=== PATIENT | female | born 1990 | race Caucasian/White ===

== ENCOUNTER 2023-09-27 19:32 | Emergency (ER) | payer BC, OTHER ==
[2023-09-27 21:34] LABS: BILIRUBIN,URINE NEGATIVE (NEGATIVE); GLUCOSE, URINE (UA) NEGATIVE (NEGATIVE); KETONES,URINE (UA) NEGATIVE (NEGATIVE); LEUKOCYTE ESTERASE, URINE NEGATIVE (NEGATIVE); NITRITE,URINE NEGATIVE (NEGATIVE); OCCULT BLOOD,URINE MODERATE (NEGATIVE); PROTEIN,URINE TRACE mg/dL (NEGATIVE); UROBILINOGEN,URINE 0.2 (NORMAL) E.U./dL (NORMAL)
[2023-09-27 21:38] LABS: CLARITY,URINE HAZY (CLEAR); HCG UR QUAL NEGATIVE
[2023-09-27 21:45] LABS: BASOPHILS # (AUTO) 0.1 10^3/uL (0.0-0.1); BASOPHILS % (AUTO) 0.5 %; EOSINOPHILS # (AUTO) 0.2 10^3/uL (0.0-0.7); EOSINOPHILS % (AUTO) 1.6 %; HCT - HEMATOCRIT 39.4 % (37.0-47.0); HGB - HEMOGLOBIN 12.5 g/dL (12.0-16.0); LYMPHOCYTES # (AUTO) 4.1 10^3/uL (1.5-3.5); LYMPHOCYTES % (AUTO) 34.7 %; MEAN CORPUSCULAR HEMOGLOBIN 27.6 pg (27.0-31.0); MEAN CORPUSCULAR HGB CONC 31.7 g/dL (32.0-36.0); MEAN PLATELET VOLUME 10.8 fL (7.9-10.8); MONOCYTES # (AUTO) 0.9 10^3/uL (0.0-1.0); MONOCYTES % (AUTO) 7.5 %; NEUTROPHILS # (AUTO) 6.5 10^3/uL (1.5-6.6); NEUTROPHILS % (AUTO) 55.4 %; PLT - PLATELET COUNT 264 10^3/uL (130-450); RED BLOOD COUNT 4.53 10^6/uL (4.20-5.40); WHITE BLOOD COUNT 11.7 x10^3/uL (4.8-10.8)
[2023-09-27 21:45] LABS: BACTERIA,URINE Moderate /HPF (None Seen); MUCUS,URINE Few Strands; SQUAMOUS EPITHELIAL CELL,UR MANY Squamous (<= Few); WBC,URINE 0-3 /HPF (0-5)
--- NOTE | 2023-09-27 21:47 | Ultrasound Report ---
PROCEDURE: Pelvic w/Transvag+Doppler Comp INDICATIONS: pelvic pain, R TECHNIQUE: Real-time scanning was performed of the pelvic organs, with image documentation. Additional endovagi nal scanning was necessary due to incomplete visualization of the adnexal and endometrial structures by transabdominal scanning. Doppler interrogation was performed of the ovaries bilaterally. COMPARISON: None. FINDINGS: Uterus: Uterus is anteverted and normal in size at 9.1 x 4.1 x 4.9 cm. The myometrium is homogeneou s. The endometrium measures 12.1 mm in combined thickness. Intrauterine device is seen within endom etrium. No gross endometrial mass or fluid is seen. Ovaries: The right ovary measures 4.1 x 3 x 3.5 cm, with a calculated ovarian volume of 22.2 cc. Th e left ovary measures 3 x 2 x 2.4 cm, with a calculated ovarian volume of 7.5 cc. Appropriate blood flow to the ovaries with Doppler interrogation. Less than 12 follicles can be seen in each ovary. C omplex cyst is seen in right ovary measures 3 x 2.1 x 2.5 cm in size.. There is also a 1.4 x 1.3 cm h ypoechoic area within right adnexa adjacent to the right ovary with suggestion of internal vascularit y. Other: Small amount of free fluid is seen in right adnexa. IMPRESSION: 1. Enlarged uterus. No intrauterine gestational sac or gross endometrial mass or fluid. No uterine fi broids. Intrauterine device is seen in its central endometrial location. 2. Enlarged right ovary with a complex right ovarian cyst measures 3 x 2 x 2.4 cm in size. Additional masslike hypoechoic area in right adnexa adjacent to right ovary is also seen and is of indeterminat e etiology. Follow-up ultrasound is recommended in 4-6 weeks for further evaluation. Clinical correla tion for patient's beta-hCG level is also recommended. 3. Small amount of free fluid in right adnexa. Normal-appearing left ovary. No evidence of ovarian to rsion. Reviewed by: Farhan Santos MD on 09/27/2023 9:46 PM PDT Approved by: Farhan Santos MD on 09/27/2023 9:46 PM PDT Station ID: [id number]
[2023-09-27 21:59] LABS: ALBUMIN 4.3 g/dL (3.2-5.5); ALBUMIN/GLOBULIN RATIO 1.3 (1.0-2.2); ALKALINE PHOSPHATASE 71 IU/L (42-121); ALT ALANINE AMINOTRANSFERASE 18 IU/L (10-60); AST ASPARTATE AMINOTRANSFERASE 15 IU/L (10-42); BILIRUBIN,TOTAL 0.3 mg/dL (0.2-1.0); BUN - BLOOD UREA NITROGEN 23 mg/dL (6-20); CALCIUM 9.3 mg/dL (8.5-10.3); CARBON DIOXIDE - CO2 24 mmol/L (21-32); CHLORIDE 104 mmol/L (101-111); CREATININE 0.6 mg/dL (0.6-1.3); GFR - MDRD 115 (>89); GLUCOSE 97 mg/dL (74-104); LIPASE 16 U/L (11-82); POTASSIUM 3.6 mmol/L (3.5-4.5); SODIUM 135 mmol/L (135-145); TOTAL PROTEIN 7.6 g/dL (6.4-8.9)
--- NOTE | 2023-09-27 22:14 | ED Physician Documentation ---
PD HPI FEMALE - Stated complaint Stated Complaint: - Chief complaint Chief Complaint: Abd Pain - Additional information Additional information: 32-year-old female presents emergency department for right-sided pelvic pain and intermittent vaginal bleeding after intercourse that she had with her on Tuesday. Patient has an IUD and she is worried that its possibly displaced she did a self vaginal exam and said that it felt abnormal and there which is what brings her into the emergency department today. She has not taken any Tylenol ibuprofen for the pain today she has not had any vaginal bleeding today either. PD PAST MEDICAL HISTORY - Allergies Allergies/Adverse Reactions: Allergies Allergy/AdvReac Type Severity Reaction Status Date / Time No Known Drug Allergies Allergy Verified 09/27/23 20:09 PD ED PE NORMAL - Vitals Vital signs reviewed: Yes - General General: Alert and oriented X 3, No acute distress, Well developed/nourished - Abdomen Abdomen: Normal bowel sounds, Soft, Non distended, No organomegaly, Other (Right pelvic tenderness and suprapubic pelvic tenderness) - Back Back: No CVA TTP - Derm Derm: Normal color, Warm and dry, No rash PD ED PE EXPANDED - Female Female : Normal external, Vaginal Discharge (Normal light yellow/white vaginal discharge, no odor), Adnexal Tenderness (Right adnexal tenderness), Product Promoter Sales Person present (APRIL Montiel present). No: Skin lesions, Vaginal Bleeding, CMT, Dilated cervix Results - Vitals Vitals: Vital Signs - 24 hr 09/27/23 09/27/23 09/27/23 20:02 22:09 22:24 Temperature 36.9 C 36.9 C Heart Rate 80 79 79 Respiratory 16 16 16 Rate Blood Pressure 150/105 H 141/85 H 141/85 H O2 Saturation 100 99 99 Oxygen O2 Source Room air - Labs Labs: Laboratory Tests 09/27/23 09/27/23 09/27/23 21:25 21:40 21:40 WBC 11.7 H RBC 4.53 Hgb 12.5 Hct 39.4 MCV 87.0 MCH 27.6 MCHC 31.7 L RDW 13.0 Plt Count 264 MPV 10.8 Neut # (Auto) 6.5 Lymph # (Auto) 4.1 H [place] # (Auto) 0.9 Eos # (Auto) 0.2 Baso # (Auto) 0.1 Absolute Nucleated RBC 0.00 Nucleated RBC % 0.0 Sodium 135 Potassium 3.6 Chloride 104 Carbon Dioxide 24 Anion Gap 7.0 BUN 23 H Creatinine 0.6 Estimated GFR (MDRD) 115 Glucose 97 Calcium 9.3 Total Bilirubin 0.3 AST 15 ALT 18 Alkaline Phosphatase 71 Total Protein 7.6 Albumin 4.3 Globulin 3.3 Albumin/Globulin Ratio 1.3 Lipase 16 Beta HCG, Quant < 0.6 Urine Color YELLOW Urine Clarity HAZY Urine pH 6.0 Ur Specific [place] >=1.030 H Urine Protein TRACE Urine Glucose (UA) NEGATIVE Urine Ketones NEGATIVE Urine Occult Blood MODERATE H Urine Nitrite NEGATIVE Urine Bilirubin NEGATIVE Urine Urobilinogen 0.2 (NORMAL) Ur Leukocyte Esterase NEGATIVE Urine RBC 6-10 H Urine WBC 0-3 Ur Squamous Epith Cells MANY Squamous H Urine Bacteria Moderate H Urine Mucus Few Strands Ur Microscopic Review INDICATED Urine Culture Comments NOT INDICATED Urine HCG, Qual NEGATIVE - Rads (name of study) Pelvic ultrasound Relevant Findings:: Final report received, EMP independent interpretation of test, Other (Enlarged uterus no intrauterine gestational sac or gross endometrial mass or fluid no uterine fibroids, IUD is seen at central en dometrial location. Enlarged right ovary with complex right ovarian cyst 3 x 2 cm, additional masslike hypoechoic area in the right adnexa adjacent to the right ovary) PD Medical Decision Making - ED course ED course: 32-year-old female presents emergency department for pelvic pain and vaginal pain after intercourse that occurred on Tuesday. Differentials include but are not limited to ectopic , ovarian torsion, ovarian cyst, urinary tract infection. A ultrasound was complete for further evaluation and reveals enlar ged uterus, no intrauterine gestational sac or gross endometrial mass or fluid, no uterine fibroids, IUD central endometrial location. There is also an enlarged right ovary with a complex right ovarian cyst measuring 3 x 2 cm with additional masslike hypoechoic area in the right adnexa adjacent to the right ovary also seen and is indeterminate etiology. Small amount of free fluid in right adnexa normal-appearing left ovary no evidence of ovarian torsion To rule out possible ectopic labs were complete and evaluated for this patient mild white count, 11.7 BUN slightly elevated at 23 normal electrolytes no anemia. Urinalysis is negative for hCG, no leukocytes or nitrites mild hematuria. I believe that patient's pain that she is experiencing is due to the right ovarian cyst. I did do a pelvic exam with APRIL Martinez at bedside and I did not see any acute abnormalities or findings on exam. No abnormal vaginal discharge, I was not able to visualize the IUD strings. Patient was informed of these findings and she was told to make an appointment with women's health clinic she has already establish care with them before where she got her IUD about 10 months ago and knows how to make an appointment with them for follow-up ultrasound and evaluation. All questions have been answered patient is safe for discharge at this point in time no further workup indicated in the emergency department. Departure - Departure Disposition: 01 Home, Self Care Clinical Impression: Right ovarian cyst Instructions: Cysts Ovarian Comments: Thank you for trusting us with your care. We have completed an ultrasound See results below. It appears that you have a right enlarged ovarian cyst that you need to have followed up with TELE[employer] CLERK outpatient. We attempted to look for your IUD strings tonight and I did not see it. Ultrasound actually does confirm that it is in the anatomical correct position. Please follow-up with your primary care provider outpatient as well as women's health clinic for further evaluation come back to the emergency department for having any worsening pain vaginal bleeding or any other concerning symptoms. PT NAME: JULIO GARLAND MR#: [id number] REG ER/ED AGE: 32 CI DT/TM: 09/27/23 PCP: : 1990 ATT: SEX: F ORD: Reed rivas MD EXAM: [id number] US/PELNOBT PROCEDURE: Pelvic w/Transvag+Doppler Comp INDICATIONS: pelvic pain, R TECHNIQUE: Real-time scanning was performed of the pelvic organs, with image documentation. Additional endovaginal scanning was necessary due to incomplete visualization of the adnexal and endometrial structures by transabdominal scanning. Doppler interrogation was performed of the ovaries bilaterally. COMPARISON: None. FINDINGS: Uterus: Uterus is anteverted and normal in size at 9.1 x 4.1 x 4.9 cm. The myometrium is homogeneous. The endometrium measures 12.1 mm in combined thickness. Intrauterine device is seen within endometrium. No gross endometrial mass or fluid is seen. Ovaries: The right ovary measures 4.1 x 3 x 3.5 cm, with a calculated ovarian volume of 22.2 cc. The left ovary measures 3 x 2 x 2.4 cm, with a calculated ovarian volume of 7.5 cc. Appropriate blood flow to the ovaries with Doppler interrogation. Less than 12 follicles can be seen in each ovary. Complex cyst is seen in right ovary measures 3 x 2.1 x 2.5 cm in size.. There is also a 1.4 x 1.3 cm hypoechoic area within right adnexa adjacent to the right ovary with suggestion of internal vascularity. Other: Small amount of free fluid is seen in right adnexa. IMPRESSION: 1. Enlarged uterus. No intrauterine gestational sac or gross endometrial mass or fluid. No uterine fibroids. Intrauterine device is seen in its central endometrial location. 2. Enlarged right ovary with a complex right ovarian cyst measures 3 x 2 x 2.4 cm in size. Additional masslike hypoechoic area in right adnexa adjacent to right ovary is also seen and is of indeterminate etiology. Follow-up ultrasound is recommended in 4-6 weeks for further evaluation. Clinical correlation for patient's beta-hCG level is also recommended. 3. Small amount of free fluid in right adnexa. Normal-appearing left ovary. No evidence of ovarian torsion. Forms: PCP List Discharge Date/Time: 09/27/23 22:24
[2023-09-27 22:25] VITALS: BP 141/85; O2SAT 99
== END 2023-09-27 22:24 | disposition home or self-care (01) ==
LOC: ED 19:32
DX: N83.291 Other ovarian cyst, right side (principal); N85.2 Hypertrophy of uterus; Z32.02 Encounter for pregnancy test, result negative; Z97.5 Presence of (intrauterine) contraceptive device
CPT/HCPCS: 36415; 80053; 81001; 81003; 81025; 83690; 84702; 85025; 87086; 93975; 99284